=== PATIENT | male | born 1985 | race Asian ===

== ENCOUNTER 2022-09-09 03:09 | Emergency (ER) | payer OTHER, SELFPAY ==
[2022-09-09 03:10] VITALS: BP 126/82; PULSE 140; RESP 22; TEMP 36.9; O2SAT 96; BMI 22.6
--- NOTE | 2022-09-09 03:26 | EX.ED.DYSGE1 ---
HPI History of Present Illness Chief Complaint: Fever Informant: patient and spouse/S.O. Onset/Context/Timing Onset: Days Narrative Narrative: Patient presents secondary to fever for the past 36 hours. He had a temperature of 102.8 earlier this night. He took Tylenol approximately 5 hours ago. He complains of nausea with diarrhea. He feels dizzy and lightheaded. He denies cough or congestion. He does have a history of irritable bowel syndrome, but only takes Bentyl as needed. He is on no chronic suppressive medicines. [facility] Medical History GERD (gastroesophageal reflux disease) Hypertension Irritable bowel syndrome Home Medications amlodipine 5 mg tablet 5 mg PO DAILY blood pressure 09/09/22 [History Last Taken Unknown] omeprazole 20 mg tablet,delayed release 20 mg PO DAILY GERD 09/09/22 [History Last Taken Unknown] potassium chloride 20 mEq tablet,extended release 20 meq PO BID #6 tabs 09/09/22 [Rx Last Taken Unknown] Allergy/AdvReac Type Severity Reaction Status Date / Time No Known Allergies Allergy Verified 09/09/22 03:12 Surgical History Hx of appendectomy Social History Smoking Status: Never smoker ROS ROS ED Constitutional Constitutional ED: Reports fever(s); Denies chills Eyes Eyes: Denies change in vision or discharge from eye(s) ENT ENT ED: Denies discharge from eye(s), rhinorrhea or sore throat Cardiovascular Cardiovascular: Reports racing heartbeat; Denies chest pain or palpitations Respiratory/Chest Respiratory/Chest: Denies cough or dyspnea Gastrointestinal Gastrointestinal: Reports abdominal pain, diarrhea and nausea; Denies vomiting Genitourinary Genitourinary ED: Reports other Details: Decreased urine output ; Denies dysuria Musculoskeletal Musculoskeletal: Denies back pain or extremity pain Integumentary Denies Abrasions or rash Neurologic Neurologic: Denies headache(s) or weakness Psychiatric Psychiatric: Denies anxiety or depression Allergic/Immunologic Allergic/Immunologic ED: Denies lip swelling or urticaria EXAM Physical Exam Const Vital Signs: 09/09/22 03:10 09/09/22 03:14 09/09/22 03:46 Temperature 98.5 F 99.2 F H Temperature Source Oral Oral Pulse Rate 140 H 106 H Respiratory Rate 22 H 30 H Respiratory Effort Normal Non-Labored Respiratory Pattern Normal Blood Pressure 126/82 H 116/82 H Blood Pressure Mean 96 93 Pulse Ox 96 97 Oxygen Delivery Method Room Air Room Air 09/09/22 04:50 09/09/22 05:49 09/09/22 07:00 Temperature 100.3 F H 99.8 F H 99.1 F Temperature Source Oral Oral Oral Pulse Rate 120 H 110 H 105 H Respiratory Rate 19 H 20 H 20 H Respiratory Effort Respiratory Pattern Blood Pressure 120/77 112/75 118/89 H Blood Pressure Mean 91 87 98 Pulse Ox 95 95 95 Oxygen Delivery Method Room Air Room Air Room Air Positive well nourished and well developed General Appearance ED: well developed HEENT Reports normocephalic, head/scalp atraumatic and dry mucous membranes Mouth ED: Yes dry mucous membranes Mouth: dry mucous membranes Eyes PERRL and EOMs intact bilaterally Neck supple Chest Wall inspection of chest normal and palpation of chest normal Resp normal respiratory effort and clear to auscultation bilaterally Cardio regular rhythm Rate: tachycardic GI GI Narrative: Abdomen soft with diffuse tenderness palpation. No guarding or rebound. Palpation: soft Extremity normal to inspection Neuro oriented x3 and no sensory deficits noted Sensorium / Orientation: alert Motor Exam: strength 5/5 throughout Psych mental status grossly normal Skin no rashes or lesions noted MDM MDM MDM Narrative Medical decision making narrative: Patient given 2 L of IV fluid. CBC and chemistry studies obtained to evaluate for leukocytosis, anemia, electrolyte derangement. CT flank obtained given his history of IBS and fever. Lab Data Attestation: I reviewed the patient's lab results. Labs: Laboratory Results - last 24 hr 09/09/22 09/09/22 09/09/22 03:15 03:15 03:15 WBC 11.7 H RBC 5.73 Hgb 15.7 Hct 46.9 MCV 81.8 MCH 27.4 MCHC 33.5 RDW Std Deviation 39.3 RDW Coeff of Robert 13.3 Plt Count 297 MPV 9.5 Immature Gran % (Auto) 0.400 Neut % (Auto) 93.4 H Lymph % (Auto) 2.8 L Harlan % (Auto) 2.8 Eos % (Auto) 0.3 Baso % (Auto) 0.3 Absolute Neuts (auto) 10.9 H Absolute Lymphs (auto) 0.33 L Nucleated RBC % 0 Sodium 133 L Potassium 3.3 L Chloride 105 Carbon Dioxide 16.0 L Anion Gap 12 BUN 27 H Creatinine 1.42 H Estim Creat Clear Calc 66.09 Est GFR (MDRD) Af Amer 72 Est GFR (MDRD) Non-Af 60 BUN/Creatinine Ratio 19.0 Glucose 122 H Lactic Acid 1.5 Calcium 9.2 Total Bilirubin 2.20 H Direct Bilirubin 0.45 H AST 33 ALT 40 Alkaline Phosphatase 44 L Total Protein 8.3 H Albumin 3.9 Globulin 4.4 H Lipase 159 Radiography Diagnostic Testing: Clinical Impression(s) from Imaging Studies Abdomen/Pelvis CT 09/09/22 04:40 IMPRESSION: Negative CT abdomen and pelvis without oral or IV contrast. Electronically Signed: Ector Young MD at 5:56 EST Reading Location ID and State: [facility] / [place] Tel , Service support , Treatment and Re-Evaluation Narrative: CBC reveals a white count 11.7 with 93% neutrophils. Hemoglobin is 15.7. Chemistry studies significant for dehydration with a BUN of 27 and a creatinine 1.42. I do not have prior values to compare to. Bicarb is low at 16. His potassium is 3.3 and his sodium is 133. Glucose is 122. LFTs reveal a total bili of 2.2 and a direct bili of 0.45. He has no focal tenderness in the right upper quadrant. Lactic acid is normal at 1.5. CT scan of the abdomen and pelvis reveals no acute abnormalities. Patient was given 20 mill equivalents of IV potassium replacement. At this time he is able to tolerate p.o. He was given a dose of Bentyl. Patient will continue to push fluids and follow a bland diet. He will be given 3 additional days of potassium as I anticipate he will still have some diarrhea while his symptoms are resolving. I do not see need for antibiotics at this time. Return instructions have been given. Discharge Plan Triage Chief Complaint: Fever ED Provider: Roya Rees Dx/Rx/DC Orders Clinical Impression: Viral gastroenteritis, Acute dehydration, Hypokalemia Instructions: ED Dehydration (Adult), ED Hypokalemia, ED Gastroenteritis, Viral (Adult) Prescriptions: New potassium chloride 20 mEq tablet extended release 20 meq PO BID Qty: 6 0RF No Action amlodipine 5 mg Tablet 5 mg PO DAILY omeprazole 20 mg Tablet,Delayed Release (Dr/Ec) 20 mg PO DAILY Primary Care Provider: Radames Lindsey Referrals: Radames Lindsey MD [Primary Care Provider] - 3-5 Days if not improving Disposition Disposition: Home, Self Care
[2022-09-09] MEDS: Ondansetron 4 MG/2 ML Vial IV (03:31)
[2022-09-09] MEDS: Morphine 4 MG/ML Syringe IV (03:31)
[2022-09-09 03:46] VITALS: BP 116/82; PULSE 106; RESP 30; TEMP 37.3; O2SAT 97
[2022-09-09] MEDS: 0.9% Normal Saline 1,000 ML 999 ML IV ×2 (03:47→04:46)
[2022-09-09 03:56] LABS: Absolute Lymphocyte Count 0.33 X10^3/uL (0.83-4.51); Absolute Neutrophil Count 10.9 X10^3/uL (2.0-7.7); Basophil# 0.03 X10^3/uL; Basophil% 0.3 % (0-1); Eosinophil# 0.03 X10^3/uL; Eosinophils% 0.3 % (0-5); Hematocrit 46.9 % (40-54); Hemoglobin 15.7 g/dL (13.0-16.5); Lymphocyte # 0.33 X10^3/ul (0.83-4.51); Lymphocyte % 2.8 % (19-41); Mean Corp Hgb Conc 33.5 g/dL (32-36); Mean Corpuscular Hgb 27.4 pg (27.0-32.0); Mean Corpuscular Volume 81.8 fL (80-94); Mean Platelet Vol. 9.5 fl (6.2-12.0); Monocyte# 0.33 X10^3/uL; Monocyte% 2.8 % (0-10); NRBC Flagged by Analyzer 0 % (0-5); Neutrophil # 10.92 X10^3/uL (2.7-7.7); Neutrophil % 93.4 % (47-70); POSITIVE DIFFERENTIAL YES; Platelet Count 297 K/mm3 (150-450); RBC Distribution Width CV 13.3 % (11.6-14.6); RBC Distribution Width SD 39.3 fl (35.1-43.9); Red Blood Count 5.73 M/mm3 (4.6-6.2); White Blood Count 11.7 K/mm3 (4.4-11.0)
[2022-09-09 03:59] LABS: Differential Indicated SCAN CRITERIA MET
[2022-09-09 04:12] LABS: AST(SGOT) 33 U/L (15-37); Alanine Aminotransfer ALT/SGPT 40 U/L (16-61); Albumin, Serum 3.9 g/dL (3.2-5.0); Alkaline Phosphatase 44 U/L (45-117); Anion Gap 12 (5-15); BUN 27 mg/dL (7-18); Bilirubin, Direct 0.45 mg/dL (0.00-0.30); Calcium,Total 9.2 mg/dL (8.5-10.1); Chloride 105 mmol/L (98-107); Creatinine, Serum 1.42 mg/dL (0.70-1.30); EST Glomerular Filtration Rate 60 mL/min (>60); Est Glom Filt Rate - Afr Amer 72 mL/min (>60); Estimated Creatinine Clearance 66.09 ml/min; Globulin 4.4 g/dL (2.2-4.2); Glucose 122 mg/dL (74-106); Lipase 159 U/L (73-393); Potassium 3.3 mmol/L (3.5-5.1); Protein, Total 8.3 g/dL (6.4-8.2); Sodium Level 133 mmol/L (136-145)
[2022-09-09 04:35] LABS: Lactic Acid 1.5 mmol/L (0.4-1.9)
--- NOTE | 2022-09-09 04:40 | CT_ITS ---
INDICATION: abd pain, fever EXAMINATION: CT ABDOMEN AND PELVIS WITHOUT CONTRAST - CT Abdomen And Pelvis W/O Contrast Injection TECHNIQUE: Helically acquired images were obtained of the abdomen and pelvis without oral or IV contrast. A radiation dose optimization technique was used for this scan. IV Contrast dosage and agent: None. Oral contrast: None. COMPARISON: None. FINDINGS: LOWER CHEST: Lung bases are clear. No cardiomegaly or pericardial effusion. LIVER: Homogeneous. No focal mass. GALLBLADDER AND BILIARY TREE: No calcified gallstones. No gallbladder distension or wall edema. No intra- or extrahepatic biliary ductal dilation. PANCREAS: No focal cystic or solid mass. SPLEEN: Normal size without focal cystic or solid mass. ADRENAL GLANDS: No nodules. KIDNEYS AND URETERS: Normal renal size and position. No hydronephrosis. PERITONEUM: No ascites or free air. No other fluid collection. BOWEL: No stomach or bowel distension. No focal inflammatory change. LYMPH NODES: No enlarged mesenteric or retroperitoneal lymph nodes. VESSELS: Aorta is non-dilated. URINARY BLADDER: Unremarkable. REPRODUCTIVE ORGANS: No pelvic masses. ABDOMINAL WALL: No discrete abdominal or pelvic wall hernia. BONES: No lytic or blastic abnormality. CT/Abdomen/Pelvis without Cont IMPRESSION: Negative CT abdomen and pelvis without oral or IV contrast. Electronically Signed: Ector Young MD at 5:56 EST ,
[2022-09-09] MEDS: Potassium Chloride 10mEq/100mL 10 MEQ/100 ML IV.SOLN. 100 MEQ IV BOLUS ×2 (04:47→05:46)
[2022-09-09 04:50] VITALS: BP 120/77; PULSE 120; RESP 19; TEMP 37.9; O2SAT 95
[2022-09-09 05:49] VITALS: BP 112/75; PULSE 110; RESP 20; TEMP 37.7; O2SAT 95
[2022-09-09] MEDS: Dicyclomine 10 MG Capsule 20 MG PO (06:58)
[2022-09-09 07:00] VITALS: BP 118/89; PULSE 105; RESP 20; TEMP 37.3; O2SAT 95
[2022-09-09 07:12] LABS: Differential Comment SCANNED
== END 2022-09-09 07:12 | disposition home or self-care (01) ==
PROVIDERS: Emergency Provider Emergency Medicine; PCP Family Medicine; Referring Provider Emergency Medicine; Visit Provider Emergency Medicine
DX: A08.4 Viral intestinal infection, unspecified (principal); E86.0 Dehydration; E87.6 Hypokalemia; I10 Essential (primary) hypertension; K21.9 Gastro-esophageal reflux disease without esophagitis; Z79.899 Other long term (current) drug therapy
CPT/HCPCS: 74176; 80048; 80076; 83605; 83690; 85025; 96365; 96366; 96375; 99285; J7030; A4216; J2405